=== PATIENT | female | born 1995 ===

== ENCOUNTER 2018-05-21 17:09 | Outpatient (REF) | payer OTHER, SELFPAY ==
[2018-05-21 20:30] LABS: Abs Immature Grans 0.02 k/cumm (0.0-0.09); Absolute Basophil Count 0.06 k/cumm (0.0-0.2); Absolute Eosinophil Count 0.14 k/cumm (0.0-0.7); Absolute Neutrophil Count 4.61 k/cumm (1.2-6.7); Basophils % 0.8; Eosinophils % 1.8; HCT 41.6 % (36.0-46.0); HGB 14.4 g/dL (12.0-15.5); Immature Grans % 0.3; Lymphocytes % 32.8; Mean Corp. HGB Concentration 34.6 g/dL (32.0-36.0); Mean Corpuscular Hemoglobin 30.4 pg (27.0-33.0); Mean Corpuscular Volume 87.9 fL (80-95); Mean Platelet Volume 10.5 fL (8.0-11.0); Monocytes % 6.3; Platelet Count 242 x1000/uL (130-400); RBC 4.73 m/cumm (4.00-5.20); RBC Distribution Width 11.5 % (11.7-14.6); White Blood Cell Count 7.93 k/cumm (4.4-10.8)
[2018-05-21 20:49] LABS: Anion Gap 8.5 mmol/L (3-11); BUN 10 mg/dL (7-18); CO2 26.5 mmol/L (21.0-32.0); CREATININE 0.74 mg/dL (0.55-1.02); Chloride 105 mmol/L (98-107); Glucose 82 mg/dL (70-100); Potassium 3.9 mmol/L (3.5-5.1); Sodium 140 mmol/L (136-145)
[2018-05-23 14:07] LABS: ANA Interpretation Negative (NEGAT)
[2018-05-23 16:17] LABS: Bartonella Henselae IgG <1:128 titer (<1:128); Bartonella Henselae IgM <1:20 titer (<1:20); Bartonella Quintana IgG <1:128 titer (<1:128); Bartonella Quintana IgM <1:20 titer (<1:20)
== END 2018-05-21 17:29 ==
LOC: NCHCN 17:09
PROVIDERS: PCP Nurse Practitioner Family; Visit Provider Nurse Practitioner Family
DX: R53.83 Other fatigue (principal)
CPT/HCPCS: 80048; 85025; 86038; 86611

== ENCOUNTER 2018-11-08 11:20 | Outpatient (REF) | payer OTHER, SELFPAY ==
[2018-11-08 20:24] LABS: Abs Immature Grans 0.04 k/cumm (0.0-0.09); Absolute Basophil Count 0.06 k/cumm (0.0-0.2); Absolute Eosinophil Count 0.02 k/cumm (0.0-0.7); Absolute Lymphocyte Count 2.76 k/cumm (1.2-3.4); Absolute Neutrophil Count 7.61 k/cumm (1.2-6.7); Basophils % 0.5; Eosinophils % 0.2; HCT 41.5 % (36.0-46.0); HGB 14.1 g/dL (12.0-15.5); Immature Grans % 0.4; Lymphocytes % 24.2; Mean Corpuscular Hemoglobin 29.9 pg (27.0-33.0); Mean Corpuscular Volume 88.1 fL (80-95); Mean Platelet Volume 10.1 fL (8.0-11.0); Monocytes % 7.9; Neutrophils % 66.8; Platelet Count 316 x1000/uL (130-400); RBC 4.71 m/cumm (4.00-5.20); RBC Distribution Width 12.4 % (11.7-14.6); White Blood Cell Count 11.39 k/cumm (4.4-10.8)
[2018-11-08 21:23] LABS: ALT 137 U/L (12-78); AST 44 U/L (15-37); Albumin 3.5 g/dL (3.4-5.0); Alkaline Phosphatase 344 U/L (46-116); Anion Gap 13.4 mmol/L (3-11); BUN 7 mg/dL (7-18); Bilirubin, Total 1.1 mg/dL (0.2-1.0); CO2 22.6 mmol/L (21.0-32.0); CREATININE 0.81 mg/dL (0.55-1.02); Chloride 100 mmol/L (98-107); Glucose 83 mg/dL (70-100); Potassium 3.9 mmol/L (3.5-5.1); Sodium 136 mmol/L (136-145); TSH 0.96 uIU/mL (0.358-3.74); Total Protein 7.2 g/dL (6.4-8.2)
[2018-11-10 17:47] LABS: CRP, High Sensitivity >15.00 mg/L
[2018-11-11 11:53] LABS: Rubella IgG Ab (UVM) Positive
[2018-11-11 12:13] LABS: Syphilis Serology (RPR) Negative (Negative)
[2018-11-11 12:41] LABS: Measles IgG Antibody Negative; Mumps Antibody IgG Negative (Negative)
[2018-11-11 14:40] LABS: ANA Interpretation Negative (NEGAT)
== END 2018-11-08 11:40 ==
LOC: NCHCN 11:20
PROVIDERS: PCP Nurse Practitioner Family; Visit Provider Nurse Practitioner Family
DX: R59.1 Generalized enlarged lymph nodes (principal)
CPT/HCPCS: 80053; 86141; 84443; 85025; 86038; 86592; 86735; 86762; 86765